=== PATIENT | male | born 1980 | race Caucasian/White ===

== ENCOUNTER 2019-07-07 09:32 | Outpatient (CLI) | payer OTHER, SELFPAY ==
[2019-07-07 12:44] LABS: Anion Gap 9.5 mmol/L (3-11); BUN 11 mg/dL (7-18); CO2 26.5 mmol/L (21.0-32.0); CREATININE 0.78 mg/dL (0.70-1.30); Calcium 8.7 mg/dL (8.5-10.1); Calculated LDL 114 mg/dL; Chloride 104 mmol/L (98-107); Cholesterol 173 mg/dL (50-200); Glucose 92 mg/dL (70-100); HDL Cholesterol 49 mg/dL (40-60); Potassium 4.4 mmol/L (3.5-5.1); Sodium 140 mmol/L (136-145); Triglyceride 50 mg/dL (30-150)
== END 2019-07-07 09:52 ==
PROVIDERS: PCP Nurse Practitioner Family; Visit Provider Nurse Practitioner Family
DX: Z13.220 Encounter for screening for lipoid disorders; Z13.228 Encounter for screening for other metabolic disorders; Z00.00 Encounter for general adult medical examination without abnormal findings
CPT/HCPCS: 36415; 80048; 80061; 83721

== ENCOUNTER 2024-07-11 00:26 | Outpatient (CLI) | payer OTHER, SELFPAY ==
--- NOTE | 2024-07-11 07:45 | DI.MRI_ITS ---
Exam(s) MR LOWER JOINT RT WO EXAM: MR LOWER JOINT RT WO CLINICAL HISTORY: pain rt knee, M25.561 TECHNIQUE: Multiplanar multisequence MRI of the knee was performed. COMPARISON: CR KNEE 4 VIEWS (ORTHO) from 03/21/2024 from outside institution FINDINGS: EFFUSION: A small joint effusion. No significant Dixon cyst. Varicose veins noted medial to the kne e. MARROW:There is no evidence of fracture, bone contusion, nor osteochondral defects.. There are no si gnificant osseous lesions. PATELLOFEMORAL COMPARTMENT: The quadriceps tendon is intact. The patellar ligament is intact. There is significant thinning of the retropatellar cartilage over the medial facet, predominately bel ow the equator. There is no subarticular bone edema within the patella. No osteochondral defects at this level.There is no intraosseous signal to suggest recent patellar dislocation. There are no kinney llar retinacular tears. CRUCIATE LIGAMENTS: The anterior cruciate ligament is intact.The posterior cruciate ligament is intac t. MEDIAL COMPARTMENT/MEDIAL MENISCUS: There is subtle irregularity in the outer 3rd of the posterior ho rn of the medial meniscus. This does not appear to violate an articular surface. There is no menisc al extrusion nor intrusion. The meniscal root is intact. Anterior horn is intact.. There are no chondral defects, osteochondral defects, subarticular marrow edema, nor osteophytes evid ent. MEDIAL COLLATERAL LIGAMENT: Mild increased signal at the meniscocapsular junction. No high-grade MCL tear evident. LATERAL COMPARTMENT/LATERAL MENISCUS: There is no evidence of lateral meniscal tear.There are no ilene dral defects, osteochondral defects, subarticular marrow edema, nor osteophytes evident. ILIOTIBIAL BAND: Intact LATERAL COLLATERAL LIGAMENT COMPLEX: The fibular collateral ligament is intact. The biceps femoris t endon is intact.Popliteus muscle and tendon are intact. IMPRESSION: 1. There is mild increased signal at the meniscocapsular junction of the medial compartment. There d oes not appear to be an obvious true meniscal tear nor high-grade tear of the medial collateral ligam ent. No bone edema evident in the adjacent medial femoral condyle and medial tibial plateau. 2. No obvious meniscal tears. No meniscal extrusion nor intrusion. 3. There are no cruciate nor collateral ligament tears 4. There is significant chondromalacia over the medial facet of the patella, predominantly inferiorly . No osteochondral defects seen at this level and no patellar edema. 5. Small knee joint effusion. No loose bodies seen. No Dixon cyst evident. DATA REPOSITORY:
== END 2024-07-11 00:46 ==
PROVIDERS: PCP Nurse Practitioner Family; Visit Provider Student in an Organized Health Care Education/Training Program
DX: M94.261 Chondromalacia, right knee (principal)
CPT/HCPCS: 73721

== ENCOUNTER 2024-09-03 20:12 | Emergency (ER) | payer OTHER, SELFPAY ==
[2024-09-03 20:30] VITALS: BP 131/81; PULSE 62; RESP 17; TEMP 36.3; O2SAT 98
--- NOTE | 2024-09-03 20:48 | ED.GENADUL_ITS ---
Discharge Plan Disposition Patient Disposition: Home Condition: Stable Discharge Details Clinical Impression: Lumbar back sprain Primary Care Provider: Angelita Lainez ED Provider: Soraya Escobar Home Meds and New Rx's Prescriptions: New prednisone 50 mg tablet 50 mg PO DAILY 5 Days Qty: 5 0RF Rx Instructions: Take 1 tablet daily x 5 days lidocaine 5 % adhesive patch,medicated 1 patch topical DAILY Qty: 15 0RF Rx Instructions: leave on most painful area for up to 12 hrs cyclobenzaprine 10 mg tablet 10 mg PO TID PRN (Reason: muscle spasm) Qty: 10 0RF Rx Instructions: Take 1 tablet up to 3 times daily as needed for muscle spasms Discharge Instructions Instructions: Back Muscle Strain Additional Instructions: Use the prescribed medications daily. Alternate ice and heat. Please be seen sooner for any loss of bowel or bladder control, numbness or tingling in your groin or rectal area or any concerns. Follow up with primary care provider in 3-5 days if needed. Return to ED sooner if any worsening or concerns. Stand Alone Forms: Work Release Referrals: Angelita Lainez NP [Primary Care Provider] - 1 week HPI General Mode of arrival: ambulatory . Date/Time Provider Initiated Documentation: 09/03/24 20:35 . Limitations to Documentation: no limitations . Information obtained by: patient, RN notes reviewed and old records reviewed . HPI Narrative: 43-year-old male presents to the ER with a chief complaint of lower back pain which began on Sunday reports that it started to feel better and then he lifted some heavy tires today which exacerbated symptoms. He denies any loss of bowel or bladder control control, denies any saddle anesthesia or radiation of pain. He did take a gram of Tylenol prior to arrival with little to no relief. Denies any other associated symptoms or concerns. Related Data Home Medications ?Medication ?Instructions ?Recorded ?Confirmed cyclobenzaprine 10 mg tablet 10 mg PO TID PRN muscle spasm #10 09/03/24 tabs lidocaine 5 % topical patch 1 patch topical DAILY #15 ea 09/03/24 prednisone 50 mg tablet 50 mg PO DAILY Lumbago 5 days #5 09/03/24 tabs Previous Rx's ?Medication ?Instructions ?Recorded cyclobenzaprine 10 mg tablet 10 mg PO TID PRN muscle spasm #10 09/03/24 tabs lidocaine 5 % topical patch 1 patch topical DAILY #15 ea 09/03/24 prednisone 50 mg tablet 50 mg PO DAILY Lumbago 5 days #5 09/03/24 tabs Allergies Allergy/AdvReac Type Severity Reaction Status Date / Time No Known Allergies Allergy Verified 09/03/24 20:38 General Stated Complaint: Nk/Back Pain MEREDITH: 3 Review of Systems All systems reviewed & are unremarkable except as noted in HPI and below Musculoskeletal Musculoskeletal: Reports abnormal gait, Reports back pain and Reports stiffness Neurologic Neurologic: Reports abnormal gait Exam Narrative Exam Narrative: Constitutional: Alert and oriented x3. Appears stated age. Normal body habitus. Head: Normocephalic, no trauma. Eyes: Pupils PERRL, Red reflex noted, EOM's intact. Eyelids symmetrical without lesions, discharge, or swelling. ENT: Bilateral TM's WNL, External ear normal to inspection, no mastoid TTP, swelling, or erythema, Nasal turbinates WNL, no nasal discharge. Normal dentition, Posterior pharynx WNL, no exudate. Chest: RRR, Normal S1, S2, distal pulses intact. Resp: Lungs clear to auscultation bilaterally, no wheezes, rales, or rhonchi. Abdomen: Soft, non-distended, Normoactive bowel sounds all 4 quads. Musculoskeletal: Normal gait, Moves all 4 extremities without difficulty. Skin: No suspicious rashes or lesions. Capillary refill less than 2 sec. Neurologic: Cranial nerves II-XII intact. Alert and oriented x 3. Motor: No deficits noted. Sensory: Intact bilaterally all 4 extremities. Hematologic/Lymphatic: No ecchymosis, no lymphadenopathy. Back/Spine/Pelvis Back: no CVA tenderness Cervical Spine: normal cervical lordosis Thoracic/Lumbar Spine: thoracic and lumbar spine normal to inspection, pain with thoraco-lumbar ROM and paraspinal tenderness Pelvis: no pain with anterior-posterior compression Course Vital Signs Vital signs: Vital Signs Temperature 36.3 C L 09/03/24 20:30 Pulse 62 09/03/24 20:30 Respiratory Rate 17 09/03/24 20:30 Blood Pressure 131/81 09/03/24 20:30 Pulse Oximetry 98 09/03/24 20:30 Temperature 36.3 C L 09/03/24 20:30 Temperature Source Temporal Artery Scan 09/03/24 20:30 Pulse 62 09/03/24 20:30 Respiratory Rate 17 09/03/24 20:30 Respiratory Effort Normal, Non-Labored 09/03/24 20:34 Blood Pressure 131/81 09/03/24 20:30 Blood Pressure Position Sitting 09/03/24 20:30 Pulse Oximetry 98 09/03/24 20:30 Oxygen Delivery Method Room Air 09/03/24 20:30 Oxygen Flow Rate 0 09/03/24 20:30 Pain Level 8 09/03/24 20:30 Medical Decision Making 43-year-old male presents to the ER with a chief complaint of lower back pain which began on Sunday reports that it started to feel better and then he lifted some heavy tires today which exacerbated symptoms. He denies any loss of bowel or bladder control control, denies any saddle anesthesia or radiation of pain. He did take a gram of Tylenol prior to arrival with little to no relief. Denies any other associated symptoms or concerns. L-spine x-rays ordered, prednisone lidocaine patch, ibuprofen and Flexeril. X-ray shows nothing acute. Patient sent home with prescriptions for Flexeril prednisone and lidocaine patches. Discuss strict return instructions and home care. This text was generated using Backchat dictation system, please disregard any oddities of phrase or misspellings. Quality:SDOH Health Related Social Needs: No Data to Display PFSH All Active Problems (Updated 09/03/24 @ 21:57 by Soraya Escobar NP) Lumbar back sprain (Acute) Right patellofemoral syndrome (Acute) Internal derangement of right knee (Acute) Femoroacetabular impingement of right hip (Acute) Hyperlipidemia (Chronic) Medical History Cigarette smoker Surgical History S/P LASIK surgery of both eyes (02/01/18) Family History Mother Glaucoma Father Type 2 diabetes mellitus Alcohol abuse Hyperlipidemia Hypertension Brother Asthma Hypertension Brother , at 25 from IED in [facility] 9yrs ago No problems noted. Maternal Grandfather , in his 50s/60s of brain aneurysm Brain aneurysm Maternal Grandmother , at 70 Depression Paternal Grandfather Alcohol abuse Prostate cancer Colon cancer Paternal Grandmother , at 58 Type 1 diabetes mellitus Social History Smoking/Tobacco Use Status: Current every day Tobacco Type: e-cigarettes Tobacco: How many years used: 23 Quit status: considering quitting Second Hand Exposure: Yes Smoking risk assessment performed?: Yes Alcohol Intake: current Alcohol Intake frequency: holidays/special occasions only Alcohol type: beer Drug use: Never Substance use type: does not use Counseling given: Yes Adopted: No Caregiver/Support person: No Foster care: No Household members: spouse Housing: house Number of Children: 0 Communication Needs: None Education Level: high school Do you need help understanding health information?: Rarely 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 Pets and animals: Yes Pets and animals: dog(s) Sexually active: Yes Do you think of yourself as: straight/heterosexual Current gender identity: male What is your relationship status?: How often do you talk on the phone with friends or family?: once per week How often do you get together with friends or relatives?: once per week How often do you attend evangelical or islam services?: decline to answer Do you belong to any clubs or organized social groups?: yes Panel score (0-1 are the most socially isolated patients): 2 What type of physical activity do you participate in: running Duration: 15-30 minutes/day Frequency: 3-4 times per week Suni/Taoism: No preference Special suni needs: No Agree to transfusion: Yes Seatbelt use: always Drive intox or ride w/intox truck driver instructor: No Working smoke detector in home: Yes Carbon monox detector in home: Yes Firearms in home: Yes Firearms unloaded and locked: Yes Do you feel safe at home: Yes Do you feel safe in your relationship?: Yes Victim of physical abuse: No Victim of emotional abuse: No Victim of sexual abuse: No Would you like helpful sources: No PAWSS Have you Been Recently Intoxicated or Drunk Within the Last 30 days?: No Have you Ever Experienced Previous Episodes of Alcohol Withdrawal?: No Have you ever Experienced Withdrawal Seizures?: No Have you ever Experienced Delirium Tremens(DT)s?: No Have you ever undergone Alcohol Rehabilitation Treatment (i.e, inpt ot outpatient treatment programs)?: No Have you ever Experienced Blackouts?: No Have you ever Combined Alcohol with other Downers within the last 90 days?: No Have you ever Combined Alcohol with any other Substance of Abuse during the last 90 days?: No Positive Blood Alcohol level on Presentation? [PCS.BAL]: No Evidence of Increased Autonomic Activity (i.e. HR>120, tremor, sweating, agitation, nausea)?: No Result: 0
[2024-09-03] MEDS: predniSONE 20 MG TAB 60 MG PO (20:54)
[2024-09-03] MEDS: Ibuprofen 800 MG TAB PO (20:54)
[2024-09-03] MEDS: Cyclobenzaprine 10 MG TAB PO (20:54)
[2024-09-03] MEDS: Lidocaine 5% Patch 1 PATCH TP (20:55)
--- NOTE | 2024-09-03 20:57 | DI.RAD_ITS ---
Exam(s) XR LUMBAR SPINE COMPLETE EXAM: XR LUMBAR SPINE COMPLETE CLINICAL HISTORY: Back pain. TECHNIQUE: 2D digital imaging was performed. COMPARISON: No exams were available for comparison FINDINGS: Five views No evidence of fracture, listhesis, nor pars defects. No significant disc space narrowing. No scoli osis. No osseous lesions. Bone density normal. Sacroiliac joints unremarkable. Facet joints appear unremarkable at all levels. IMPRESSION: No significant radiographic findings in the lumbosacral spinal DATA REPOSITORY: RADIATION DOSE DELIVERED:
--- NOTE | 2024-09-03 22:00 | DI.VRAD_ITS ---
PROCEDURE INFORMATION: Exam: XR Lumbosacral Spine Exam date and time: 09/03/2024 9:10 PM Age: 43 years old Clinical indication: Other: Back pain TECHNIQUE: Imaging protocol: Radiologic exam of the lumbosacral spine. Views: 4 or 5 views. COMPARISON: CR HIP 2 VIEWS (ROUTINE) INCL PELVIS 03/21/2024 11:04 AM FINDINGS: Bones/joints: Normal. No acute fracture. Normal alignment. Soft tissues: Unremarkable. IMPRESSION: No acute process. Dictated and Authenticated by: Esvin Arana MD. Ordering:JAVY Lira MD
[2024-09-03] MEDS: Cyclobenzaprine 10 MG TAB, 3 TABS/BTL PO (22:12)
--- NOTE | 2024-09-04 12:48 | NUR.NOTE ---
Nursing Note: Patient stopped in and asked for a copy of his imaging reports from yesterday. He said that his employer needed something that stated what they found. Per his ED visit note and the imaging, they did not find anything significant. Pt said that he is going to fax it to his employer and if they needed anything else, he would call us.
== END 2024-09-03 22:14 | disposition home or self-care (01) ==
PROVIDERS: Emergency Provider Registered Nurse Emergency; PCP Nurse Practitioner Family
DX: S33.5XXA Sprain of ligaments of lumbar spine, initial encounter (principal); F17.290 Nicotine dependence, other tobacco product, uncomplicated; X58.XXXA Exposure to other specified factors, initial encounter
CPT/HCPCS: 99283; 72110; J7512

== ENCOUNTER 2024-10-06 08:44 | Outpatient (CLI) | payer OTHER, SELFPAY ==
[2024-10-06 12:14] LABS: Abs Immature Grans 0.02 10^3/uL (0.0-0.06); Absolute Basophil Count 0.05 10^3/uL (0.0-0.2); Absolute Eosinophil Count 0.07 10^3/uL (0.0-0.7); Absolute Lymphocyte Count 1.67 10^3/uL (1.2-3.4); Absolute Monocyte Count 0.42 10^3/uL (0.1-0.8); Absolute Neutrophil Count 2.41 10^3/uL (1.2-6.7); Basophils % 1.1 %; Eosinophils % 1.5 %; HCT 44.7 % (40.0-50.0); HGB 14.6 g/dL (13.5-17.5); Immature Grans % 0.4 %; MCH 29.4 pg (27.0-33.0); MCHC 32.7 % (32.0-36.0); MCV 90 fL (80-95); MPV 9.8 fL (8.0-11.0); Monocytes % 9.1 %; Neutrophils % 51.9 %; Platelet Count 220 10^3/uL (130-400); RBC 4.96 10^6/uL (4.36-5.78); RDW 11.7 % (11.8-14.1); RDW-SD 38.4 fL; WBC 4.64 10^3/uL (4.4-10.8)
[2024-10-06 13:34] LABS: ALT 31 U/L (16-63); AST 17 U/L (15-37); Albumin 4.4 g/dL (3.4-5.0); Alkaline Phosphatase 75 U/L (46-116); Anion Gap 7.2 mmol/L (3-11); BUN 17 mg/dL (7-18); Bilirubin, Total 0.57 mg/dL (0.2-1.0); CO2 28.8 mmol/L (21.0-32.0); Calcium 9.5 mg/dL (8.5-10.1); Calculated LDL 145 mg/dL (<100); Chloride 101 mmol/L (98-107); Cholesterol 223 mg/dL (<200); Estimated GFR 96.97 (mL/min/1.73m2); Glucose 100 mg/dL (74-106); HDL Cholesterol 64 mg/dL (40-60); Potassium 3.8 mmol/L (3.5-5.1); Sodium 137 mmol/L (136-145); TSH (W/Ref FT4) 1.86 uIU/mL (0.36-3.74); Total Protein 8.1 g/dL (6.4-8.2); Triglyceride 74 mg/dL (<150)
[2024-10-06 17:46] LABS: Hemoglobin A1C 5.6 % (<5.7)
[2024-10-06 18:27] LABS: Hepatitis C Ab w Rflx HCV PCR Negative (Negative)
[2024-10-06 18:33] LABS: HIV-1/2 Ag & Ab Screen Negative (Negative)
[2024-10-06 18:37] LABS: HBs Antibody, Quant 217.3 mIU/mL (See Note); Hep B Surface Ab Positive (See Note); Hepatitis B Core Antibody Negative (Negative); Hepatitis B Surface Antigen Negative (Negative)
== END 2024-10-06 08:45 | disposition home or self-care (01) ==
LOC: LOS 08:45
PROVIDERS: PCP Nurse Practitioner Family; Referring Provider Nurse Practitioner Family; Visit Provider Nurse Practitioner Family
DX: Z00.00 Encounter for general adult medical examination without abnormal findings (principal); Z11.59 Encounter for screening for other viral diseases; Z11.4 Encounter for screening for human immunodeficiency virus [HIV]
CPT/HCPCS: 36415; 80053; 80061; 86704; 86706; 86803; 87340; 87389; 83036; 84443; 85025